=== PATIENT | female | born 1970 | race Caucasian/White ===

== ENCOUNTER 2017-01-06 13:02 | Emergency (ER) | payer OTHER ==
[~2017-01-06] VITALS: Ht 162.6 cm; Wt 79.5 kg
[2017-01-06 13:05] VITALS: TEMP 36.8; Ht 162.6 cm; Wt 79.5 kg
[2017-01-06] MEDS ORDERED: ASPIRIN 81 MG CHEW PO STA (13:18)
--- NOTE | 2017-01-06 13:25 | EMERGENCY ROOM VISIT NOTE ---
History Report prepared by [facility]: Octavio Phillips Under the Supervision of: Dr. Marck Mckeon M.D. First contact with patient: 13:09 Chief Complaint: CHEST PAIN Stated Complaint: CHEST PAIN Nursing Triage Summary: Pt presents with left upper chest pain and pain under left breast since waking up this morning. Did not wake her from sleep. Mild sob. Denies dizziness/lightheadedness/nausea. History of Present Illness The patient is a 46 year old female who presents to the Emergency Room with complaints of persistent left-sided chest pain that stared upon waking this morning at 0730. She also says that she has pain under her left breast. The patient says she felt fine yesterday. The patient states that the pain is worsened a bit on breathing and movement. She also notes a bit of shortness of breath. The patient has not had any recent injuries and has not done any strenuous activity. She has not been taking anything for the pain. The patient denies a cough, fever, back pain, arm pain, abdominal pain, nausea, vomiting, headache, diaphoresis, lightheadedness, dizziness, leg pain, or leg swelling. The patient has arthritis and chronic migraines. She flew to [place] last week, and flew to [place] the week before that. She is on Cymbalta and Imitrex. The patient has a family history of mitral valve prolapse. She has no personal history of clots. Source of History: patient Onset: 0730 this morning Position: chest (left, also below left breast) Timing: other (persistent) Modifying Factors (Worsening): breathing, movement Associated Symptoms: + SOB, No abdominal pain, No back pain, No cough, No diaphoresis, No headache, No nausea, No vomiting Note: Associated symptoms: Denies arm pain, lightheadedness, dizziness, leg pain, leg swelling. Review of Systems See HPI for pertinent positives & negatives. A total of 10 systems reviewed and were otherwise negative. Past Medical & Surgical Medical Problems: (1) Arthritis (2) Migraine Surgical Problems: (1) delivery delivered (2) Previous back surgery Old medical records were attempted to be reviewed but there are no old records at this hospital. Nurse's notes were reviewed and I agree with. Denies history of cardiac disease or blood clots or diabetes Family History Diabetes mellitus FH: heart disease FHx: cancer Hypertension Mitral valve prolapse Social History Smoking Status: Never Smoker Smokeless Tobacco Use: No Alcohol Use: occasionally Marital Status: Housing Status: lives with family Occupation Status: unemployed Current/Historical Medications Scheduled Duloxetine Hcl (Cymbalta), 60 MG PO QAM Meloxicam (Mobic), 15 MG PO QAM Sumatriptan Succinate (Imitrex), 50 MG PO PRN Scheduled PRN Zolpidem Tartrate (Ambien), 5 MG PO HS PRN for Sleep Allergies Coded Allergies: Morphine (Unverified Adverse Reaction, Severe, HIVES, 01/06/17) Physical Exam Vital Signs Date Time Temp Pulse Resp B/P Pulse Ox O2 Delivery O2 Flow Rate FiO2 01/06/17 15:35 88 14 160/106 100 01/06/17 14:26 94 14 171/117 97 Room Air 01/06/17 13:59 95 01/06/17 13:05 36.8 99 18 164/109 94 Room Air Physical Exam General: Well developed well nourished non ill appearing middle aged female in no acute distress, breathing comfortably on room air. Normal speech HEENT: Normal cephalic atraumatic. Pupils are equal round and reactive to light. Extraocular movements are intact. Oropharynx is pink with moist mucous membranes. No swelling of the mouth lips or tongue. Neck: Supple with a midline trachea. No meningeal signs or stiffness, no JVD or bruits. No Stridor. Chest: Clear to auscultation bilaterally. No wheezes or rhonchi. No increased work of breathing. Mildly reproducible tenderness in left sternal border and left anterior lower ribs. Heart: regular rate and rhythm. Abdomen: Soft nontender, nondistended without rebound guarding or rigidity. Extremities: No cyanosis clubbing or edema. No calf tenderness or assymetry Spine/Back. Non tender to palpation. No CVA tenderness Skin: Good turgor without rashes. Neurologic exam: Cranial nerves two through 12 are intact. Motor and sensation are intact and symmetrical throughout. Medical Decision & Procedures ER Provider Diagnostic Interpretation: X-ray results as stated below per interpretation by me and the radiologist: SINGLE VIEW CHEST CLINICAL HISTORY: Atypical chest pain. FINDINGS: An AP, portable, upright chest radiograph is obtained. No prior studies are available for comparison at the time of dictation. The examination is degraded by portable technique and patient rotation. The cardiomediastinal silhouette is unremarkable. The lungs and pleural spaces are clear. No pneumothorax is seen. The bony thorax is grossly intact. IMPRESSION: No active disease in the chest. Electronically signed by: Emigdio Corea M.D. 01/06/2017 1:50 PM Dictated Date/Time: 01/06/2017 1:50 PM Laboratory Results 01/06/17 13:30 Red Blood Count 4.82, Mean Corpuscular Volume 87.6, Mean Corpuscular Hemoglobin 30.1, Mean Corpuscular Hemoglobin Concent 34.4, Mean Platelet Volume 10.3, Neutrophils (%) (Auto) 54.0, Lymphocytes (%) (Auto) 34.5, Monocytes (%) (Auto) 9.1, Eosinophils (%) (Auto) 1.7, Basophils (%) (Auto) 0.5, Neutrophils # (Auto) 3.22, Lymphocytes # (Auto) 2.05, Monocytes # (Auto) 0.54, Eosinophils # (Auto) 0.10, Basophils # (Auto) 0.03 01/06/17 13:30 Test 01/06/17 13:30 01/06/17 13:34 White Blood Count 5.95 K/uL (4.8-10.8) Red Blood Count 4.82 M/uL (4.2-5.4) Hemoglobin 14.5 g/dL (12.0-16.0) Hematocrit 42.2 % (37-47) Mean Corpuscular Volume 87.6 fL (80-100) Mean Corpuscular Hemoglobin 30.1 pg (25-34) Mean Corpuscular Hemoglobin Concent 34.4 g/dl (32-36) Platelet Count 265 K/uL (130-400) Mean Platelet Volume 10.3 fL (7.4-10.4) Neutrophils (%) (Auto) 54.0 % Lymphocytes (%) (Auto) 34.5 % Monocytes (%) (Auto) 9.1 % Eosinophils (%) (Auto) 1.7 % Basophils (%) (Auto) 0.5 % Neutrophils # (Auto) 3.22 K/uL (1.4-6.5) Lymphocytes # (Auto) 2.05 K/uL (1.2-3.4) Monocytes # (Auto) 0.54 K/uL (0.11-0.59) Eosinophils # (Auto) 0.10 K/uL (0-0.5) Basophils # (Auto) 0.03 K/uL (0-0.2) RDW Standard Deviation 41.4 fL (36.4-46.3) RDW Coefficient of Variation 12.8 % (11.5-14.5) Immature Granulocyte % (Auto) 0.2 % Immature Granulocyte # (Auto) 0.01 K/uL (0.00-0.02) Anion Gap 7.0 mmol/L (3-11) Est Creatinine Clear Calc Drug Dose 116.9 ml/min Estimated GFR () 126.2 Estimated GFR (Non- 108.9 BUN/Creatinine Ratio 20.7 (10-20) Calcium Level 8.1 mg/dl (8.5-10.1) Total Bilirubin 0.4 mg/dl (0.2-1) Direct Bilirubin < 0.1 mg/dl (0-0.2) Aspartate Amino Transf (AST/SGOT) 19 U/L (15-37) Alanine Aminotransferase (ALT/SGPT) 34 U/L (12-78) Alkaline Phosphatase 97 U/L (45-117) Total Creatine Kinase 72 U/L (26-192) Creatine Kinase MB 0.6 ng/ml (0.5-3.6) Creatine Kinase MB Ratio 0.8 (0-3.0) Total Protein 8.0 gm/dl (6.4-8.2) Albumin 3.9 gm/dl (3.4-5.0) Lipase 144 U/L (73-393) Human Chorionic Gonadotropin, Qual NEG (NEG) Bedside D-Dimer 124 ng/mlFEU (0-450) Bedside Troponin I 0.000 ng/ml (0-0.045) Laboratory studies as stated above per my review. Medications Administered Medications (Trade) Dose Ordered Sig/Salazar Route Start Time Stop Time Status Last Admin Dose Admin Aspirin (Aspirin Chew) 324 mg NOW STAT PO 01/06/17 13:18 01/06/17 13:20 DC 01/06/17 13:40 324 MG ECG Indication: chest pain Rate (beats per minute): 98 Rhythm: normal sinus Findings: no acute ischemic change, no ectopy, other (normal intervals) Comparison ECG Date: no prior available ED Course 1310: Past medical records reviewed. The patient was evaluated in room B2, and a complete history and physical examination were performed. 1318: Ordered Aspirin Chew 324 mg PO. 1507: Upon reevaluation, the patient is resting comfortably. I discussed the results and treatment plan with her. She verbalized agreement of the treatment plan. The patient was discharged home. Medical Decision Differentials include, but are not limited to; costochondritis, cardiac disease , arrhythmia, pulmonary embolus, pneumothorax, electrolyte or metabolic abnormality. This patient comes in as described above. She was placed in room B2. She is here for treatment evaluation of chest pain is reproducibly tender in her anterior chest. She looks well and [id number]. she was placed on a monitoring manager and room B2. EKG, chest x-ray, multiple blood testing was obtained. EKG does not suggest acute coronary syndrome or arrhythmia. Chest x- ray does not show any acute abnormalities or anything to suggest congestive heart failure, pneumonia, or pneumothorax. She was reassessed frequently. She was given aspirin 324 mg chewable. Cardiac enzymes are normal and not elevated. D-dimer was within normal limits and in a low pretest probably sitting makes PE highly unlikely. She has nothing to suggest liver gallbladder pancreas disease. I think this is most likely costochondritis it is reproducible. It is very atypical for cardiac disease. She feels good and appears comfortable. I will discharge her home. She should rest and drink plenty of fluid. She can use anti-inflammatories such as ibuprofen if needed and return if increasing pain, worsening of symptoms, shortness of breath, fever chills, any new problems and follow-up with her regular doctor in the next couple days for recheck. Impression Primary Impression: Precordial chest pain Additional Impression: Costochondritis Scribe Attestation The scribe's documentation has been prepared under my direction and personally reviewed by me in its entirety. I confirm that the note above accurately reflects all work, treatment, procedures, and medical decision making performed by me. Departure Information Dispostion Home / Self-Care Referrals No Doctor, Assigned (PCP) Mary Sanchez D.O. Forms HOME CARE DOCUMENTATION FORM, IMPORTANT VISIT INFORMATION Patient Instructions My [facility] Additional Instructions Rest. Drink plenty of fluids. May use an anti-inflammatory such as ibuprofen 400 mg every 6 hours, take with food Return if: Increasing pain, worsening of symptoms, fever or chills, any new problems concerns. Follow-up with your doctor on Tuesday for recheck Problem Qualifiers
--- NOTE | 2017-01-06 13:53 | DIAGNOSTIC IMAGING REPORT ---
SINGLE VIEW CHEST CLINICAL HISTORY: Atypical chest pain. FINDINGS: An AP, portable, upright chest radiograph is obtained. No prior studies are available for comparison at the time of dictation. The examination is degraded by portable technique and patient rotation. The cardiomediastinal silhouette is unremarkable. The lungs and pleural spaces are clear. No pneumothorax is seen. The bony thorax is grossly intact. IMPRESSION: No active disease in the chest. Electronically signed by: Emigdio Corea M.D. 01/06/2017 1:50 PM Dictated Date/Time: 01/06/2017 1:50 PM
[2017-01-06 14:04] LABS: BASO % 0.5 %; BASO ABS # 0.03 K/uL (0-0.2); COMPLETE YES; EOS % 1.7 %; HEMATOCRIT 42.2 % (37-47); IG% 0.2 %; LYMPH % 34.5 %; LYMPH ABS # 2.05 K/uL (1.2-3.4); MEAN CELL VOLUME 87.6 fL (80-100); MEAN CORPUSCULAR HEMOGLOBIN 30.1 pg (25-34); MEAN CORPUSCULAR HGB CONC 34.4 g/dl (32-36); MEAN PLATELET VOLUME 10.3 fL (7.4-10.4); MONO % 9.1 %; PLATELET COUNT 265 K/uL (130-400); RED BLOOD COUNT 4.82 M/uL (4.2-5.4); WHITE BLOOD COUNT 5.95 K/uL (4.8-10.8)
[2017-01-06 14:29] LABS: ALT/SGPT 34 U/L (12-78); AST/SGOT 19 U/L (15-37); BLOOD UREA NITROGEN 13 mg/dl (7-18); BUN/CREATININE RATIO 20.7 (10-20); CALCIUM 8.1 mg/dl (8.5-10.1); CARBON DIOXIDE 27 mmol/L (21-32); CHLORIDE 108 mmol/L (98-107); CREATININE 0.62 mg/dl (0.60-1.20); GLUCOSE 92 mg/dl (70-99); POTASSIUM 3.6 mmol/L (3.5-5.1); SODIUM 142 mmol/L (136-145)
[2017-01-06] MEDS ORDERED: MELO7.5T5 PO (14:30)
[2017-01-06] MEDS ORDERED: SUMA50TA15 PO (14:30)
[2017-01-06] MEDS ORDERED: DULO60CA44 PO (14:30)
[2017-01-06] MEDS ORDERED: ZOLP5TAB PO (14:31)
[2017-01-06 14:34] LABS: ALKALINE PHOSPHATASE 97 U/L (45-117); CKMB/CK RATIO 0.8 (0-3.0)
[2017-01-06 14:36] LABS: PREG INTERNAL NEGATIVE QC NEG CLEAR BACKGROUND; PREG INTERNAL POSITIVE QC POS CONTROL LINE
[2017-01-06 15:35] VITALS: BP 160/106; PULSE 88; O2SAT 100
== END 2017-01-06 15:37 | disposition home or self-care (01) ==
LOC: C.EDB 13:03
DX: R07.2 Precordial pain (principal); M94.0 Chondrocostal junction syndrome [Tietze]; M19.90 Unspecified osteoarthritis, unspecified site; Z79.899 Other long term (current) drug therapy; Z88.5 Allergy status to narcotic agent; Z83.3 Family history of diabetes mellitus; Z82.49 Family history of ischemic heart disease and other diseases of the circulatory system; Z80.9 Family history of malignant neoplasm, unspecified